=== PATIENT | male | born 1980 | race African-American/Black ===

== ENCOUNTER 2017-01-06 09:36 | Emergency (ER) | payer OTHER ==
[~2017-01-06] VITALS: Ht 177.8 cm; Wt 102.0 kg
[2017-01-06] MEDS ORDERED: ONDANSETRON HCL 4MG/2ML VIAL IV STA (10:10)
[2017-01-06] MEDS ORDERED: SODIUM CHLORIDE 0.9% 1,000 ML IV ONE (10:10)
[2017-01-06] MEDS ORDERED: FAMOTIDINE 20MG/2ML VIAL IV STA (10:10)
[2017-01-06] MEDS ORDERED: MORPHINE SULFATE 4 MG/ML CPJ (NOT FOR IM USE) IV STA (10:10)
[2017-01-06 10:28] LABS: DIFFERENTIAL COMMENT 1; HEMATOCRIT. 48.6 % (42.0-52.0); HEMOGLOBIN. 16.7 g/dL (14.0-18.0); MEAN CORPUSCULAR HEMOGLOBIN 27.6 pg (28.0-32.0); MEAN CORPUSCULAR HGB CONC 34.3 g/dL (31.0-37.0); MEAN CORPUSCULAR VOLUME 80.4 fL (80.0-94.0); PLATELET 282 x1000/uL (130-400); RED BLOOD CELL COUNT 6.04 mill/uL (4.7-6.1); WHITE BLOOD COUNT 15.5 x1000/uL (4.5-11.0)
[2017-01-06 10:35] LABS: CHLORIDE 99 mEq/L (98-107); INDEX HEMOLYSI 1 (1-3); INDEX ICTERIC 1 (1-4); INDEX LIPEMIC 1 (1-3)
[2017-01-06 10:36] LABS: INR 1.1; PARTIAL THROMBOPLASTIN TIME 27.3 sec (24.0-34.0); PROTHROMBIN TIME 10.9 sec
[2017-01-06 10:43] LABS: ALANINE AMINOTRANSFERASE 20 IU/L (13-61); ALBUMIN 4.3 g/dL (3.4-5.0); ANION GAP 18; CALCIUM 9.4 mg/dL (8.5-10.1); CARBON DIOXIDE 24 mEq/L (21-32); ETHANOL BLOOD < 10 mg/dL; LIPASE 66 IU/L (73-393); UREA NITROGEN BLOOD 12 mg/dL (7-21); eGFR > 60 mL/min (>60)
[2017-01-06 11:00] LABS: PLATELET ESTIMATE NORMAL
[2017-01-06] MEDS ORDERED: INSULIN REGULAR (HUMULIN R) 300UNITS/3ML IV ONE (11:00)
[2017-01-06 12:02] LABS: CLARITY URINE CLEAR (CLEAR); COLOR URINE YELLOW (YELLOW); GLUCOSE URINE 3+ (NEGATIVE); KETONES URINE 4+ (NEGATIVE); LEUKOCYTE ESTERASE URINE NEGATIVE (NEGATIVE); NITRITE URINE NEGATIVE (NEGATIVE); OCCULT BLOOD URINE 1+ (NEGATIVE); PROTEIN URINE 3+ (NEGATIVE); SPECIFIC GRAVITY URINE 1.041 (1.005-1.030)
[2017-01-06 12:18] LABS: *AMPHETAMINES SCREEN URINE PRESUMTIVE POSITIVE (NEGATIVE); *BARBITURATES SCREEN URINE NEGATIVE (NEGATIVE); *BENZODIAZEPINES SCREEN URINE NEGATIVE (NEGATIVE); *COCAINE SCREEN URINE NEGATIVE (NEGATIVE); CANNABINOID URINE SCREEN PRESUMTIVE POSITIVE (NEGATIVE); ECSTASY MDMA SCREEN URINE NEGATIVE (NEGATIVE); METHADONE URINE SCREEN NEGATIVE (NEGATIVE); OPIATES URINE SCREEN PRESUMTIVE POSITIVE (NEGATIVE); PHENCYCLIDINE URINE SCREEN NEGATIVE (NEGATIVE)
[2017-01-06 12:20] LABS: SQUAMOUS EPITHELIAL CELL URINE RARE /lpf (RARE/1+)
[2017-01-06 12:21] LABS: BACTERIA URINE NONE SEEN; RBC URINE 0-2 /hpf (0-2); WBC URINE 0-2 /hpf (0-2)
[2017-01-06 13:17] VITALS: BP 142/91
== END 2017-01-06 13:20 | disposition home or self-care (01) ==
LOC: ER 10:59
DX: K76.0 Fatty (change of) liver, not elsewhere classified (principal); K80.20 Calculus of gallbladder without cholecystitis without obstruction; R73.9 Hyperglycemia, unspecified; I10 Essential (primary) hypertension; F12.120 Cannabis abuse with intoxication, uncomplicated
CPT/HCPCS: 36415; 76700; 80053; 80305; 81001; 82962; 83690; 85025; 85610; 85730; 96361; 96374; 96375; 99285; G0482; J1815; J2270; J2405; J3490; J7030; Z7610

== ENCOUNTER 2017-07-12 11:59 | Inpatient (IN) | payer OTHER ==
[~2017-07-12] VITALS: Ht 177.8 cm; Wt 101.6 kg
[2017-07-12 16:07] LABS: BASOPHILS % 0.6 % (0.0-2.0); EOSINOPHILS % 2.8 % (0.0-5.0); HEMATOCRIT. 34.9 % (42.0-52.0); HEMOGLOBIN. 11.9 g/dL (14.0-18.0); LYMPHOCYTES % 21.3 % (20.0-50.0); MEAN CORPUSCULAR HEMOGLOBIN 28.7 pg (28.0-32.0); MEAN PLATELET VOLUME 8.4 fl (7.4-10.4); NEUTROPHILS % 68.3 % (40.0-76.0); PLATELET 234 x1000/uL (130-400); RED BLOOD CELL COUNT 4.15 mill/uL (4.7-6.1); RED CELL DISTRIBUTION WIDTH 13.7 % (11.6-14.6)
[2017-07-12 16:12] LABS: CARBON DIOXIDE 26 mEq/L (21-32); CHLORIDE 105 mEq/L (98-107)
[2017-07-12] MEDS ORDERED: PIPERACILLIN/TAZOBACTAM 3.375GM/50ML PREMIX IV ONE (17:15)
[2017-07-12] MEDS ORDERED: ENOXAPARIN 100MG/ML SYR SUBCUT ONE (17:15)
[2017-07-12] MEDS ORDERED: VANCOMYCIN 1 G PREMIX 200 ML IV SCH (17:15)
[2017-07-12 17:37] LABS: INR 1.1; PROTHROMBIN TIME 11.2 sec (9.4-11.6)
[2017-07-12] MEDS ORDERED: PIPERACILLIN/TAZ 3.375G PREMIX 50 ML IV NR (18:00)
[2017-07-12 21:00] VITALS: BP 165/106
[2017-07-12] MEDS ORDERED: MORPHINE SULFATE 4 MG/ML CPJ (NOT FOR IM USE) IV PRN (21:00)
[2017-07-12 21:01] VITALS: BP 165/106
[2017-07-12] MEDS: AMLODIPINE 5MG TABLET PO SCH (21:33)
[2017-07-12] MEDS: ENOXAPARIN 100MG/ML SYR SUBCUT SCH (21:34)
[2017-07-12] MEDS ORDERED: VANCOMYCIN 500 MG PREMIX 100 ML IV NR (23:00)
[2017-07-13] VITALS: BP 140/94
[2017-07-13] MEDS: PIPERACILLIN/TAZ 3.375G PREMIX 50 ML IV SCH ×3 (02:08→17:20)
[2017-07-13 04:00] VITALS: BP 135/86
[2017-07-13] MEDS: VANCOMYCIN 1500MG in DEXTROSE 5% WATER 250ML IV SCH ×2 (05:54→14:33)
[2017-07-13 06:55] LABS: EOSINOPHILS % 3.3 % (0.0-5.0); HEMATOCRIT. 34.8 % (42.0-52.0); HEMOGLOBIN. 11.9 g/dL (14.0-18.0); LYMPHOCYTES % 21.7 % (20.0-50.0); MEAN CORPUSCULAR HEMOGLOBIN 28.6 pg (28.0-32.0); MEAN CORPUSCULAR VOLUME 83.6 fL (80.0-94.0); MEAN PLATELET VOLUME 8.5 fl (7.4-10.4); MONOCYTES % 7.9 % (2.0-8.0); NEUTROPHILS % 66.1 % (40.0-76.0); PLATELET 226 x1000/uL (130-400); RED BLOOD CELL COUNT 4.16 mill/uL (4.7-6.1); RED CELL DISTRIBUTION WIDTH 13.4 % (11.6-14.6)
[2017-07-13 07:42] LABS: CARBON DIOXIDE 27 mEq/L (21-32); CHLORIDE 104 mEq/L (98-107)
[2017-07-13 08:00] VITALS: BP 146/95
[2017-07-13] MEDS ORDERED: VANCOMYCIN 1 G PREMIX 200 ML IV SCH (09:00)
[2017-07-13] MEDS: AMLODIPINE 5MG TABLET PO SCH (09:59)
[2017-07-13] MEDS: ENOXAPARIN 100MG/ML SYR SUBCUT SCH (10:01)
[2017-07-13 12:00] VITALS: BP 151/97
[2017-07-13 16:00] VITALS: BP 143/100
[2017-07-13 20:00] VITALS: BP 161/102
[2017-07-13] MEDS ORDERED: CLONIDINE 0.1MG TABLET PO SCH (20:00)
[2017-07-13] MEDS ORDERED: CLONIDINE 0.1MG TABLET PO PRN (20:00)
== END 2017-07-13 21:25 | disposition left against medical advice (07) | DRG 197 ==
LOC: ER 11:59 → 6EST 17:23 → ENRESERV 19:18
PROVIDERS: ADMIT Internal Medicine; ATTEND Internal Medicine
DX: I82.411 Acute embolism and thrombosis of right femoral vein (principal); I82.431 Acute embolism and thrombosis of right popliteal vein; I10 Essential (primary) hypertension; E44.1 Mild protein-calorie malnutrition; D63.8 Anemia in other chronic diseases classified elsewhere; T14.8 Other injury of unspecified body region; L03.115 Cellulitis of right lower limb; E66.9 Obesity, unspecified; I72.4 Aneurysm of artery of lower extremity; Z53.21 Procedure and treatment not carried out due to patient leaving prior to being seen by health care provider; Z68.32 Body mass index [BMI] 32.0-32.9, adult; W34.00XA Accidental discharge from unspecified firearms or gun, initial encounter; Y93.89 Activity, other specified; Y92.89 Other specified places as the place of occurrence of the external cause; Y99.8 Other external cause status
CPT/HCPCS: 36415; 73630; 73706; 80048; 80053; 85025; 85610; 93971; 96374; 96375; 99285; C1893; J1650; J2543; J3370; J7050; J7060